=== PATIENT | female | born 1945 | race Caucasian/White ===

== ENCOUNTER → 2018-03-20 | Outpatient (CLI) | payer OTHER ==
[~2018-03-20] MED LIST: ASPI-496 PO; CHOL2000 PO; CITA20TA6 PO; CLOP75TA PO; GABA600T2 PO; simvastatin PO
[2018-03-20 14:36] LABS: ALANINE AMINOTRANSFERASE 17 U/L (12-78); ALBUMIN 3.8 g/dL (3.4-5.0); ANION GAP 4 mmol/L (5-15); CALCIUM 9.6 mg/dL (8.5-10.1); CHLORIDE 107 mmol/L (98-107); CREATININE 0.93 mg/dL (0.55-1.02)
[2018-03-20 14:38] LABS: ALKALINE PHOSPHATASE 85 U/L (45-117); BASOPHILS # (AUTO) 0.01 x10^3/uL (0-0.1); BASOPHILS % (AUTO) 0 % (0-1); BILIRUBIN,TOTAL 0.3 mg/dL (0.2-1.0); EOSINOPHILS # (AUTO) 0.08 x10^3/uL (0-0.4); EOSINOPHILS % (AUTO) 1 % (1-7); LYMPHOCYTES # (AUTO) 1.64 x10^3/uL (1-3.4); LYMPHOCYTES % (AUTO) 23 % (22-44); MD NO; MEAN CORPUSCULAR HEMOGLOBIN 26.6 pg (27.0-34.8); MEAN CORPUSCULAR HGB CONC 32.5 g/dL (32.4-35.8); MEAN CORPUSCULAR VOLUME 81.8 fL (80-100); MEAN PLATELET VOLUME 7.8 fL (7.4-10.4); MONOCYTES # (AUTO) 0.61 x10^3/uL (0.2-0.8); MONOCYTES % (AUTO) 9 % (2-9); NEUTROPHILS # (AUTO) 4.89 x10^3/uL (1.8-6.8); NEUTROPHILS % (AUTO) 68 % (42-75); PLATELET COUNT 188 x10^3/uL (130-400); RED BLOOD COUNT 5.01 x10^6/uL (3.82-5.3); RED CELL DISTRIBUTION WIDTH 16.1 % (9.6-15.2); TOTAL PROTEIN 7.1 g/dL (6.4-8.2)
[2018-03-20 14:48] LABS: INTERNATIONAL NORMALIZED RATIO 0.97 (0.93-1.1); PROTHROMBIN TIME 10.1 Seconds (9.6-11.5)
== END | disposition home or self-care (01) ==
LOC: STAR 13:09
PROVIDERS: ATTEND Specialist
DX: Z01.818 Encounter for other preprocedural examination (principal); J44.9 Chronic obstructive pulmonary disease, unspecified; I44.4 Left anterior fascicular block; I51.7 Cardiomegaly; N95.0 Postmenopausal bleeding
CPT/HCPCS: 36415; 71046; 80053; 85025; 85610; 85730; 93005

== ENCOUNTER 2018-03-26 09:04 | Day surgery (SDC) | payer OTHER ==
[~2018-03-26] VITALS: Ht 165.1 cm; Wt 39.1 kg
[2018-03-26] MEDS ORDERED: LACTATED RINGERS 1,000 ML IV SCH (09:36)
[2018-03-26 09:45] VITALS: BP 174/101
[2018-03-26] MEDS ORDERED: FENTANYL PF 100 MCG/2ML ONE (10:16)
[2018-03-26] MEDS ORDERED: DEXAMETHASONE 4 MG/ML, 1ML ONE (10:36)
[2018-03-26] MEDS ORDERED: PROPOFOL 10 MG/ML, 20ML ONE (10:36)
[2018-03-26] MEDS ORDERED: PHENYLEPHRINE 10 MG/ML ONE (10:36)
[2018-03-26] MEDS ORDERED: ONDANSETRON 2MG/ML, 2ML ONE (10:36)
[2018-03-26] MEDS ORDERED: FENTANYL PF 100 MCG/2ML IV PRN (11:00)
[2018-03-26] MEDS ORDERED: ONDANSETRON 2MG/ML, 2ML IV PRN (11:00)
[2018-03-26] MEDS ORDERED: ACETAMINOPHEN 325 MG TABLET PO PRN (11:00)
[2018-03-26] MEDS ORDERED: OXYcodone 5 MG/5 ML ORAL.SOL UDC PO PRN (11:00)
== END 2018-03-26 12:50 ==
LOC: OUT 09:04
PROVIDERS: ATTEND Specialist
DX: N95.0 Postmenopausal bleeding (principal); R61 Generalized hyperhidrosis; Z98.890 Other specified postprocedural states; Z86.73 Personal history of transient ischemic attack (TIA), and cerebral infarction without residual deficits; Z96.652 Presence of left artificial knee joint; F17.210 Nicotine dependence, cigarettes, uncomplicated
CPT/HCPCS: 58120; 88305; J1100; J2370; J2405; J2704; J3010; J7120